=== PATIENT | female | born 1945 | race Caucasian/White ===

== ENCOUNTER 2017-10-13 21:57 | Inpatient (IN) | payer OTHER ==
[~2017-10-13] VITALS: Ht 165.1 cm; Wt 79.4 kg
[~2017-10-13 21:57] MED LIST: BACTROBAN CREAM15 GM TP; BONIVA150 MG PO; CALCIUM 500 MG1 EACH PO; FEOSOL325 MG PO; MAGNESIUM400 M1 PO; PROZAC20 MG PO; SINEQUAN10 MG PO; SYNTHROID100 MCG PO; VITAMIN C1000 MG PO; VITAMIN D32000 UNI1 PO
[2017-10-14 10:54] VITALS: BP 120/60
[2017-10-14 17:48] VITALS: BP 124/71
[2017-10-14 20:00] VITALS: BP 69/44
[2017-10-14 20:05] VITALS: BP 66/36
[2017-10-14 20:15] VITALS: BP 82/48
[2017-10-14 20:30] VITALS: BP 92/62
[2017-10-14 20:49] LABS: HEMATOCRIT 30.5 % (36.0-46.0); MCH 30.2 PG (29.0-34.0); MCHC 34.1 G/DL (30.0-36.0); MCV 88.7 FL (83-99); PLATELET COUNT 338 K/uL (156-360); RBC DIS.WIDTH-CV 14.9 % (11.8-14.6); WHITE BLOOD COUNT 15.6 K/uL (4.1-10.2)
[2017-10-14 20:59] LABS: ALBUMIN 3.3 G/DL (3.2-4.8); CHLORIDE 101 MEQ/L (99-109); DIRECT BILIRUBIN 0.1 mg/dL (0.0-0.3); HEMOGLOBIN 10.4 G/DL (11.9-15.5); POTASSIUM 4.1 MEQ/L (3.7-5.4); RED BLOOD COUNT 3.44 M/uL (3.80-5.20); SODIUM 132 MEQ/L (136-147); TOTAL BILIRUBIN 0.7 MG/DL (0.0-1.0)
[2017-10-14 21:05] LABS: ALKALINE PHOSPHATASE 58 IU/L (3-129); ALT (GPT) 16 IU/L (3-49); AST (GOT) 17 IU/L (2-34); CREATININE 0.6 MG/DL (0.6-1.3); GFR ESTIMATE (CALCULATED) > 59 mL/min/; GLUCOSE 155 mg/dL (70-99); TOTAL PROTEIN 5.2 G/DL (6.4-8.3); UREA NITROGEN (BUN) 12 mg/dL (9-23)
[2017-10-14 21:09] LABS: TROP-I INTERPRETATION NEGATIVE; TROPONIN-I < 0.01 ng/mL (0.0-0.30)
== END 2017-10-14 20:45 | DRG 470 ==
LOC: ENRESERV 21:57 → 2SOUTH 10-14 09:10 → 3WEST 10-14 09:10 → 2SOUTH 10-14 13:09 → 3WEST 10-14 17:15
PROVIDERS: Hospitalist; Orthopaedic Surgery
PROC: 0SRC0J9 Replacement of Right Knee Joint with Synthetic Substitute, Cemented, Open Approach (ICD-10-PCS; principal; 2017-10-14)
DX: M17.11 Unilateral primary osteoarthritis, right knee (principal)
CPT/HCPCS: 80053; 81003; 82248; 82948; 83605; 84484; 85027; 86850; 86900; 86901; 87040; 88305; 93005; C1713; J0131; J0690; J1885; J2250; J2310; J2405; J2795; J7050; S0020

== ENCOUNTER 2017-10-14 20:20 | Inpatient (IN) | payer OTHER ==
[~2017-10-14] VITALS: Ht 165.1 cm; Wt 80.9 kg
[2017-10-14 20:45] VITALS: BP 116/57
[2017-10-14 20:50] VITALS: BP 116/57
[2017-10-14 22:05] VITALS: BP 92/51
[2017-10-15 00:15] VITALS: BP 96/51
[2017-10-15 00:41] LABS: APPEARANCE CLEAR ((CLEAR)); BILIRUBIN NEGATIVE; BLOOD NEGATIVE; COLOR STRAW ((YELLOW)); GLUCOSE (STRIP) NEGATIVE; KETONES NEGATIVE; LEUKOCYTES NEGATIVE; NITRITE NEGATIVE; PROTEIN (STRIP) NEGATIVE; SPECIFIC GRAVITY 1.008 (1.000-1.030); UCUL ADDED? NO; UROBILINOGEN 0.2 MG/DL (0.2-1.0)
[2017-10-15 05:30] VITALS: BP 94/52
[2017-10-15 06:36] LABS: HEMATOCRIT 29.6 % (36.0-46.0); HEMOGLOBIN 9.9 G/DL (11.9-15.5); MCH 29.5 PG (29.0-34.0); MCHC 33.4 G/DL (30.0-36.0); MCV 88.1 FL (83-99); PLATELET COUNT 322 K/uL (156-360); RBC DIS.WIDTH-CV 14.8 % (11.8-14.6); RED BLOOD COUNT 3.36 M/uL (3.80-5.20); WHITE BLOOD COUNT 11.6 K/uL (4.1-10.2)
[2017-10-15 06:59] LABS: CHLORIDE 98 MEQ/L (99-109); CREATININE 0.6 MG/DL (0.6-1.3); GFR ESTIMATE (CALCULATED) > 59 mL/min/; GLUCOSE 120 mg/dL (70-99); POTASSIUM 4.3 MEQ/L (3.7-5.4); SODIUM 130 MEQ/L (136-147); UREA NITROGEN (BUN) 12 mg/dL (9-23)
[2017-10-15 07:21] LABS: TROP-I INTERPRETATION NEGATIVE; TROPONIN-I < 0.01 ng/mL (0.0-0.30)
[2017-10-15 07:56] VITALS: BP 105/56
[2017-10-15 09:33] LABS: THYROTROPIN (TSH) 0.57 MIU/L (0.4-5.5)
[2017-10-15 12:40] VITALS: BP 104/54
[2017-10-15 13:16] LABS: TROP-I INTERPRETATION NEGATIVE; TROPONIN-I < 0.01 ng/mL (0.0-0.30)
[2017-10-15 15:05] VITALS: BP 112/57
[2017-10-15 21:05] VITALS: BP 116/58
[2017-10-16 00:50] VITALS: BP 103/54
[2017-10-16 03:50] VITALS: BP 119/65
[2017-10-16 09:02] LABS: HEMATOCRIT 27.5 % (36.0-46.0); HEMOGLOBIN 9.6 G/DL (11.9-15.5); MCH 30.3 PG (29.0-34.0); MCHC 34.9 G/DL (30.0-36.0); MCV 86.8 FL (83-99); PLATELET COUNT 311 K/uL (156-360); RBC DIS.WIDTH-CV 14.6 % (11.8-14.6); RBC DIS.WIDTH-SD 46.4 % (39-53); RED BLOOD COUNT 3.17 M/uL (3.80-5.20); WHITE BLOOD COUNT 12.3 K/uL (4.1-10.2)
[2017-10-16 09:09] VITALS: BP 112/57
[2017-10-16 09:26] LABS: CHLORIDE 94 MEQ/L (99-109); CREATININE 0.5 MG/DL (0.6-1.3); GFR ESTIMATE (CALCULATED) > 59 mL/min/; GLUCOSE 129 mg/dL (70-99); POTASSIUM 4.1 MEQ/L (3.7-5.4); SODIUM 125 MEQ/L (136-147); UREA NITROGEN (BUN) 7 mg/dL (9-23)
[2017-10-16 14:32] VITALS: BP 128/55
[2017-10-16 16:00] VITALS: BP 116/55
[2017-10-16 20:00] VITALS: BP 113/64
[2017-10-17 00:17] VITALS: BP 128/58
[2017-10-17 04:27] VITALS: BP 122/57
[2017-10-17 08:01] VITALS: BP 116/53
[2017-10-17] MEDS ORDERED: ELIQUIS2.5 MG PO (08:34)
[2017-10-17] MEDS ORDERED: ENDOCET 5-3251 EACH PO (08:34)
[2017-10-17 12:24] VITALS: BP 117/58
== END 2017-10-17 14:10 | DRG 312 ==
LOC: 4EAST 20:20 → ENRESERV 20:20 → 3WEST 20:40 → 4EAST 20:40 → 3WEST 10-16 11:28 → ENRESERV 10-16 12:06 → 3WEST 10-16 13:05
PROVIDERS: Hospitalist; Internal Medicine
DX: I95.81 Postprocedural hypotension (principal); E87.1 Hypo-osmolality and hyponatremia; M17.11 Unilateral primary osteoarthritis, right knee; R33.9 Retention of urine, unspecified; T40.605A Adverse effect of unspecified narcotics, initial encounter; D72.829 Elevated white blood cell count, unspecified; E03.9 Hypothyroidism, unspecified; F32.9 Major depressive disorder, single episode, unspecified; Z96.651 Presence of right artificial knee joint
CPT/HCPCS: 71045; 80048; 81003; 84443; 84484; 85027; 85730; 97530 GO; J0690; J2405; J7120